=== PATIENT | female | born 1930 | race Caucasian/White ===

== ENCOUNTER 2018-04-21 07:36 | Day surgery (SDC) | payer OTHER, MEDICARE ==
[2018-04-21] MEDS ORDERED: SODIUM CHLORIDE 250 ML IV ONE ×2 (09:00→11:30)
[2018-04-21] MEDS ORDERED: DEXAMETHASONE INJECTION 20 MG, DIPHENHYDRAMINE 25 MG in SODIUM CHLORIDE 100 ML IVPB ONE (10:00)
[2018-04-21] MEDS ORDERED: FAMOTIDINE 20 MG/50 ML IVPB 20 MG/50 ML MG IVPB ONE (10:00)
[2018-04-21] MEDS ORDERED: PACLITAXEL 102 MG in SODIUM CHLORIDE 250 ML IVPB ONE (10:30)
[2018-04-21 10:32] VITALS: TEMP 98.3
[2018-04-21 10:52] LABS: BASO % 0.9 % (0-2.0); EOS % 2.8 % (0-4.5); HEMATOCRIT 41.7 % (32.4-45.2); HEMOGLOBIN 13.5 GM/dL (10.7-15.3); LYMPH % 26.1 % (8-40); MCHC 32.4 g/dl (32.0-36.0); MEAN CELL VOLUME 92.6 fl (80-96); MEAN PLT VOLUME 8.6 fl (7.5-11.1); MONO % 10.6 % (3.8-10.2); NEUT % 59.6 % (42.8-82.8); PLATELET COUNT 190 K/MM3 (134-434); RDW 14.4 % (11.6-15.6); WHITE BLOOD COUNT 8.3 K/mm3 (4.0-10.0)
[2018-04-21 11:32] LABS: ALBUMIN 3.5 g/dl (3.4-5.0); BILIRUBIN,DIRECT 0.1 mg/dL (0.0-0.2); BILIRUBIN,TOTAL 0.5 mg/dL (0.2-1); MAGNESIUM 2.2 mg/dL (1.8-2.4); TOT PROT 6.7 g/dl (6.4-8.2)
[2018-04-21 11:37] LABS: ALBUMIN 3.5 g/dl (3.4-5.0); ALK PHOS 85 U/L (45-117); ANION GAP 8 MMOL/L (8-16); BILIRUBIN,TOTAL 0.5 mg/dL (0.2-1); BLOOD UREA NITROGEN 17 mg/dL (7-18); CHLORIDE 108 mmol/L (98-107); CO2 24 mmol/L (21-32); CREATININE 0.9 mg/dL (0.55-1.3); GLUCOSE,RANDOM 136 mg/dL (74-106); POTASSIUM 3.9 mmol/L (3.5-5.1); SGOT/AST 21 U/L (15-37); SGPT/ALT 20 U/L (13-61); SODIUM 141 mmol/L (136-145); TOT PROT 6.8 g/dl (6.4-8.2)
[2018-04-21] MEDS ORDERED: ONDANSETRON 4 MG/2 ML VIAL IVPB ONE (12:19)
[2018-04-21 18:40] VITALS: BP 147/72; PULSE 81
== END 2018-04-21 17:30 | disposition home or self-care (01) ==
LOC: JONCCHEMO 07:36 → J7W 12:25 → JONCCHEMO 17:30
PROVIDERS: ATTEND Internal Medicine Hematology & Oncology
DX: Z51.11 Encounter for antineoplastic chemotherapy (principal); C50.919 Malignant neoplasm of unspecified site of unspecified female breast
CPT/HCPCS: 36415; 80053; 80076; 83735; 85025; 96361; 96367; 96375; 96413; J1100

== ENCOUNTER 2018-04-28 07:29 | Day surgery (SDC) | payer OTHER, MEDICARE ==
[2018-04-28] MEDS ORDERED: SODIUM CHLORIDE 250 ML IV ONE ×2 (09:00→11:30)
[2018-04-28 09:52] LABS: BASO % 0.7 % (0-2.0); EOS % 3.8 % (0-4.5); HEMATOCRIT 39.8 % (32.4-45.2); LYMPH % 21.9 % (8-40); MCHC 32.6 g/dl (32.0-36.0); MEAN CELL VOLUME 92.3 fl (80-96); MEAN PLT VOLUME 9.5 fl (7.5-11.1); MONO % 8.4 % (3.8-10.2); NEUT % 65.2 % (42.8-82.8); PLATELET COUNT 209 K/MM3 (134-434); RBC 4.31 M/mm3 (3.60-5.2); RDW 14.3 % (11.6-15.6); WHITE BLOOD COUNT 6.2 K/mm3 (4.0-10.0)
[2018-04-28] MEDS ORDERED: DEXAMETHASONE INJECTION 20 MG, DIPHENHYDRAMINE 25 MG, RANITIDINE INJECTION 50 MG in SOD... IVPB ONE (10:00)
[2018-04-28] MEDS ORDERED: ONDANSETRON 4 MG/2 ML VIAL IVPB ONE (10:22)
[2018-04-28] MEDS ORDERED: PACLITAXEL 102 MG in SODIUM CHLORIDE 250 ML IVPB ONE (10:30)
[2018-04-28 10:32] LABS: ALBUMIN 3.3 g/dl (3.4-5.0); ALK PHOS 76 U/L (45-117); ANION GAP 8 MMOL/L (8-16); BILIRUBIN,TOTAL 0.8 mg/dL (0.2-1); BLOOD UREA NITROGEN 16 mg/dL (7-18); CALCIUM 9.1 mg/dL (8.5-10.1); CHLORIDE 106 mmol/L (98-107); CO2 25 mmol/L (21-32); CREATININE 0.8 mg/dL (0.55-1.3); GLUCOSE,RANDOM 128 mg/dL (74-106); POTASSIUM 4.3 mmol/L (3.5-5.1); SGOT/AST 21 U/L (15-37); SGPT/ALT 25 U/L (13-61); SODIUM 140 mmol/L (136-145); TOT PROT 6.3 g/dl (6.4-8.2)
[2018-04-28 10:36] LABS: ALBUMIN 3.3 g/dl (3.4-5.0); BILIRUBIN,DIRECT 0.2 mg/dL (0.0-0.2); BILIRUBIN,TOTAL 0.6 mg/dL (0.2-1); MAGNESIUM 2.1 mg/dL (1.8-2.4); TOT PROT 6.4 g/dl (6.4-8.2)
[2018-04-28 11:17] VITALS: TEMP 98.2
[2018-04-28 13:43] VITALS: BP 133/59; PULSE 73
== END 2018-04-28 13:44 | disposition home or self-care (01) ==
LOC: JONCCHEMO 07:29 → J7W 10:34 → JONCCHEMO 13:44
PROVIDERS: ATTEND Internal Medicine Hematology & Oncology
DX: Z51.11 Encounter for antineoplastic chemotherapy (principal); C50.919 Malignant neoplasm of unspecified site of unspecified female breast
CPT/HCPCS: 36415; 80053; 80076; 83735; 85025; 96361; 96367; 96375; 96413; J1100

== ENCOUNTER 2018-05-05 07:46 | Day surgery (SDC) | payer OTHER, MEDICARE ==
[2018-05-05] MEDS ORDERED: SODIUM CHLORIDE 250 ML IV ONE ×2 (09:00→11:30)
[2018-05-05] MEDS ORDERED: DEXAMETHASONE IVPB ONE (10:00)
[2018-05-05] MEDS ORDERED: RANITIDINE IVPB ONE (10:00)
[2018-05-05] MEDS ORDERED: DIPHENHYDRAMINE IVPB ONE (10:00)
[2018-05-05] MEDS ORDERED: [UNRECOGNIZED DRUG - OTHER] IVPB ONE (10:00)
[2018-05-05 10:28] LABS: BASO % 1.5 % (0-2.0); EOS % 2.4 % (0-4.5); HEMATOCRIT 37.1 % (32.4-45.2); HEMOGLOBIN 12.5 GM/dL (10.7-15.3); LYMPH % 33.1 % (8-40); MCH 30.8 pg (25.7-33.7); MCHC 33.7 g/dl (32.0-36.0); MEAN CELL VOLUME 91.3 fl (80-96); MEAN PLT VOLUME 8.8 fl (7.5-11.1); PLATELET COUNT 197 K/MM3 (134-434); RBC 4.07 M/mm3 (3.60-5.2); RDW 14.5 % (11.6-15.6); WHITE BLOOD COUNT 4.1 K/mm3 (4.0-10.0)
[2018-05-05] MEDS ORDERED: PACLITAXEL 102 MG in SODIUM CHLORIDE 250 ML IVPB ONE (10:30)
[2018-05-05] MEDS ORDERED: DEXAMETHASONE SOD PHOSPHATE 4 MG/1 ML VIAL IVPB ONE (10:52)
[2018-05-05] MEDS ORDERED: ONDANSETRON 4 MG/2 ML VIAL IVPB ONE (10:53)
[2018-05-05 11:18] LABS: ALBUMIN 3.3 g/dl (3.4-5.0); ALK PHOS 72 U/L (45-117); ANION GAP 11 MMOL/L (8-16); BILIRUBIN,TOTAL 0.4 mg/dL (0.2-1); BLOOD UREA NITROGEN 17 mg/dL (7-18); CHLORIDE 105 mmol/L (98-107); CO2 23 mmol/L (21-32); CREATININE 0.9 mg/dL (0.55-1.3); GLUCOSE,RANDOM 127 mg/dL (74-106); POTASSIUM 3.5 mmol/L (3.5-5.1); SGOT/AST 19 U/L (15-37); SGPT/ALT 28 U/L (13-61); SODIUM 139 mmol/L (136-145); TOT PROT 6.2 g/dl (6.4-8.2)
[2018-05-05 11:19] LABS: ALBUMIN 3.3 g/dl (3.4-5.0); BILIRUBIN,DIRECT 0.1 mg/dL (0.0-0.2); BILIRUBIN,TOTAL 0.4 mg/dL (0.2-1); MAGNESIUM 1.8 mg/dL (1.8-2.4); TOT PROT 6.1 g/dl (6.4-8.2)
[2018-05-05] MEDS ORDERED: DEXAMETHASONE SOD PHOSPHATE 10 MG/1 ML VIAL ONE (11:22)
[2018-05-05 13:58] VITALS: TEMP 98
[2018-05-05 15:02] VITALS: BP 125/65; PULSE 78
== END 2018-05-05 15:03 | disposition home or self-care (01) ==
LOC: JONCCHEMO 07:46 → J7W 11:06 → JONCCHEMO 15:03
PROVIDERS: ATTEND Internal Medicine Hematology & Oncology
DX: Z51.11 Encounter for antineoplastic chemotherapy (principal); C50.919 Malignant neoplasm of unspecified site of unspecified female breast
CPT/HCPCS: 36415; 80053; 80076; 83735; 85025; 96361; 96367; 96413; J1100

== ENCOUNTER → 2018-05-17 | Day surgery (SDC) | payer OTHER, MEDICARE ==
[2018-05-14 13:57] VITALS: BMI 28.3
[2018-05-17 09:51] LABS: EOS % 2.4 % (0-4.5); HEMATOCRIT 37.6 % (32.4-45.2); LYMPH % 18.8 % (8-40); MCH 31.2 pg (25.7-33.7); MCHC 34.4 g/dl (32.0-36.0); MEAN CELL VOLUME 90.7 fl (80-96); MEAN PLT VOLUME 9.1 fl (7.5-11.1); MONO % 16.3 % (3.8-10.2); NEUT % 61.5 % (42.8-82.8); PLATELET COUNT 212 K/MM3 (134-434); RBC 4.15 M/mm3 (3.60-5.2); RDW 14.6 % (11.6-15.6); WHITE BLOOD COUNT 7.8 K/mm3 (4.0-10.0)
[2018-05-17 10:18] LABS: INR 1.21 (0.83-1.09); PROTHROMBIN TIME (PATIENT) 14.3 SEC (9.7-13.0)
== END | disposition home or self-care (01) ==
LOC: JRADIR 09:17
PROVIDERS: ATTEND Internal Medicine Hematology & Oncology
PROC: 3E033GC Introduction of Other Therapeutic Substance into Peripheral Vein, Percutaneous Approach (ICD-10-PCS; principal; 2018-05-17)
DX: Z53.8 Procedure and treatment not carried out for other reasons (principal)
CPT/HCPCS: 36415; 85025; 85610

== ENCOUNTER 2018-05-19 07:14 | Day surgery (SDC) | payer OTHER, MEDICARE ==
[2018-05-19] MEDS ORDERED: SODIUM CHLORIDE 250 ML IV ONE ×2 (08:00→10:00)
[2018-05-19] MEDS ORDERED: DEXAMETHASONE INJECTION 10 MG, DIPHENHYDRAMINE 25 MG, RANITIDINE INJECTION 50 MG in SOD... IVPB ONE (08:30)
[2018-05-19] MEDS ORDERED: PACLITAXEL 102 MG in SODIUM CHLORIDE 250 ML IVPB ONE (09:00)
[2018-05-19 09:46] LABS: BASO % 1.1 % (0-2.0); EOS % 3.9 % (0-4.5); HEMATOCRIT 38.3 % (32.4-45.2); HEMOGLOBIN 12.5 GM/dL (10.7-15.3); LYMPH % 17.7 % (8-40); MCH 29.3 pg (25.7-33.7); MCHC 32.5 g/dl (32.0-36.0); MEAN CELL VOLUME 90.2 fl (80-96); MEAN PLT VOLUME 8.7 fl (7.5-11.1); MONO % 15.5 % (3.8-10.2); NEUT % 61.8 % (42.8-82.8); PLATELET COUNT 231 K/MM3 (134-434); RBC 4.25 M/mm3 (3.60-5.2); RDW 14.8 % (11.6-15.6); WHITE BLOOD COUNT 7.4 K/mm3 (4.0-10.0)
[2018-05-19] MEDS ORDERED: ONDANSETRON 4 MG/2 ML VIAL IVPB ONE (10:32)
[2018-05-19 10:48] LABS: ALBUMIN 3.2 g/dl (3.4-5.0); ALK PHOS 70 U/L (45-117); ANION GAP 13 MMOL/L (8-16); BILIRUBIN,DIRECT 0.2 mg/dL (0.0-0.2); BILIRUBIN,TOTAL 0.5 mg/dL (0.2-1); BLOOD UREA NITROGEN 12 mg/dL (7-18); CALCIUM 8.4 mg/dL (8.5-10.1); CHLORIDE 103 mmol/L (98-107); CO2 22 mmol/L (21-32); GLUCOSE,RANDOM 139 mg/dL (74-106); MAGNESIUM 1.8 mg/dL (1.8-2.4); POTASSIUM 4.2 mmol/L (3.5-5.1); SGOT/AST 20 U/L (15-37); SGPT/ALT 22 U/L (13-61); SODIUM 138 mmol/L (136-145); TOT PROT 6.3 g/dl (6.4-8.2)
[2018-05-19] MEDS ORDERED: DEXAMETHASONE INJECTION 10 MG in SODIUM CHLORIDE 100 ML IVPUSH ONE (11:15)
[2018-05-19 15:38] VITALS: BP 142/61; PULSE 77
[2018-05-19 15:41] VITALS: TEMP 98.5
== END 2018-05-19 14:40 | disposition home or self-care (01) ==
LOC: JONCCHEMO 07:14 → J7W 10:44 → JONCCHEMO 14:40
PROVIDERS: ATTEND Internal Medicine Hematology & Oncology
DX: Z51.11 Encounter for antineoplastic chemotherapy (principal); C50.919 Malignant neoplasm of unspecified site of unspecified female breast
CPT/HCPCS: 36415; 80053; 80076; 83735; 85025; 96361; 96367; 96375; 96413; J1100

== ENCOUNTER 2018-05-26 07:10 | Day surgery (SDC) | payer OTHER, MEDICARE ==
[2018-05-26] MEDS ORDERED: SODIUM CHLORIDE 250 ML IV ONE ×2 (08:00→10:00)
[2018-05-26] MEDS ORDERED: [UNRECOGNIZED DRUG - OTHER] IVPB ONE (08:30)
[2018-05-26] MEDS ORDERED: DEXAMETHASONE IVPB ONE (08:30)
[2018-05-26] MEDS ORDERED: RANITIDINE IVPB ONE (08:30)
[2018-05-26] MEDS ORDERED: DIPHENHYDRAMINE IVPB ONE (08:30)
[2018-05-26] MEDS ORDERED: PACLITAXEL 102 MG in SODIUM CHLORIDE 250 ML IVPB ONE (09:00)
[2018-05-26 09:49] LABS: BASO % 1.9 % (0-2.0); EOS % 8.5 % (0-4.5); HEMATOCRIT 38.2 % (32.4-45.2); HEMOGLOBIN 12.6 GM/dL (10.7-15.3); LYMPH % 22.1 % (8-40); MCH 29.6 pg (25.7-33.7); MCHC 33.1 g/dl (32.0-36.0); MEAN CELL VOLUME 89.5 fl (80-96); MEAN PLT VOLUME 8.4 fl (7.5-11.1); NEUT % 59.5 % (42.8-82.8); PLATELET COUNT 273 K/MM3 (134-434); RBC 4.27 M/mm3 (3.60-5.2); RDW 14.6 % (11.6-15.6); WHITE BLOOD COUNT 7.4 K/mm3 (4.0-10.0)
[2018-05-26 10:13] LABS: ALBUMIN 3.4 g/dl (3.4-5.0); ALK PHOS 79 U/L (45-117); ANION GAP 14 MMOL/L (8-16); BILIRUBIN,TOTAL 0.4 mg/dL (0.2-1); BLOOD UREA NITROGEN 18 mg/dL (7-18); CALCIUM 8.6 mg/dL (8.5-10.1); CHLORIDE 105 mmol/L (98-107); CO2 20 mmol/L (21-32); CREATININE 0.9 mg/dL (0.55-1.3); GLUCOSE,RANDOM 159 mg/dL (74-106); POTASSIUM 3.6 mmol/L (3.5-5.1); SGOT/AST 16 U/L (15-37); SGPT/ALT 24 U/L (13-61); SODIUM 139 mmol/L (136-145); TOT PROT 6.6 g/dl (6.4-8.2)
[2018-05-26] MEDS ORDERED: DEXAMETHASONE SOD PHOSPHATE 10 MG/1 ML VIAL IVPB ONE (11:30)
[2018-05-26] MEDS ORDERED: ONDANSETRON 4 MG/2 ML VIAL IVPB ONE (11:30)
[2018-05-26 16:28] VITALS: BP 110/71; PULSE 85; TEMP 98.5
== END 2018-05-26 16:10 | disposition home or self-care (01) ==
LOC: JONCCHEMO 07:10 → J7W 11:09 → JONCCHEMO 16:10
PROVIDERS: ATTEND Internal Medicine Hematology & Oncology
DX: Z51.11 Encounter for antineoplastic chemotherapy (principal); C50.919 Malignant neoplasm of unspecified site of unspecified female breast
CPT/HCPCS: 36415; 71046-TC-FY; 80053; 85025; 96361; 96367; 96375; 96413; J1100

== ENCOUNTER 2018-06-09 07:41 | Day surgery (SDC) | payer OTHER, MEDICARE ==
[2018-06-09] MEDS ORDERED: SODIUM CHLORIDE 250 ML IV ONE ×2 (09:00→11:30)
[2018-06-09 09:46] LABS: BASO % 1.2 % (0-2.0); EOS % 0.6 % (0-4.5); HEMATOCRIT 38.8 % (32.4-45.2); HEMOGLOBIN 13.4 GM/dL (10.7-15.3); LYMPH % 29.5 % (8-40); MCH 30.8 pg (25.7-33.7); MCHC 34.6 g/dl (32.0-36.0); MEAN CELL VOLUME 88.9 fl (80-96); MEAN PLT VOLUME 8.5 fl (7.5-11.1); MONO % 11.1 % (3.8-10.2); NEUT % 57.6 % (42.8-82.8); PLATELET COUNT 227 K/MM3 (134-434); RBC 4.36 M/mm3 (3.60-5.2); RDW 15.6 % (11.6-15.6); WHITE BLOOD COUNT 8.5 K/mm3 (4.0-10.0)
[2018-06-09] MEDS ORDERED: RANITIDINE IVPB ONE (10:00)
[2018-06-09] MEDS ORDERED: [UNRECOGNIZED DRUG - OTHER] IVPB ONE (10:00)
[2018-06-09] MEDS ORDERED: DIPHENHYDRAMINE IVPB ONE (10:00)
[2018-06-09] MEDS ORDERED: DEXAMETHASONE IVPB ONE (10:00)
[2018-06-09] MEDS ORDERED: PACLITAXEL 102 MG in SODIUM CHLORIDE 250 ML IVPB ONE (10:30)
[2018-06-09 10:32] LABS: ALBUMIN 3.4 g/dl (3.4-5.0); ALK PHOS 94 U/L (45-117); ANION GAP 11 MMOL/L (8-16); BILIRUBIN,DIRECT 0.1 mg/dL (0.0-0.2); BILIRUBIN,TOTAL 0.5 mg/dL (0.2-1); BLOOD UREA NITROGEN 13 mg/dL (7-18); CALCIUM 8.7 mg/dL (8.5-10.1); CHLORIDE 107 mmol/L (98-107); CO2 23 mmol/L (21-32); CREATININE 0.9 mg/dL (0.55-1.3); GLUCOSE,RANDOM 136 mg/dL (74-106); SGOT/AST 15 U/L (15-37); SGPT/ALT 18 U/L (13-61); SODIUM 141 mmol/L (136-145); TOT PROT 6.6 g/dl (6.4-8.2)
[2018-06-09] MEDS ORDERED: DEXAMETHASONE SOD PHOSPHATE 4 MG/1 ML VIAL IVPB ONE (10:33)
[2018-06-09 11:40] VITALS: TEMP 97.5
[2018-06-09] MEDS ORDERED: DEXAMETHASONE SOD PHOSPHATE 10 MG/1 ML VIAL ONE (11:58)
[2018-06-09 16:22] VITALS: BP 131/69; PULSE 85
== END 2018-06-09 15:00 | disposition home or self-care (01) ==
LOC: JONCCHEMO 07:41 → J7W 10:46 → JONCCHEMO 15:00
PROVIDERS: ATTEND Internal Medicine Hematology & Oncology
DX: Z51.11 Encounter for antineoplastic chemotherapy (principal); C50.919 Malignant neoplasm of unspecified site of unspecified female breast
CPT/HCPCS: 36415; 80053; 80076; 83735; 85025; 96361; 96367; 96375; 96413; J1100

== ENCOUNTER 2018-06-16 07:37 | Day surgery (SDC) | payer OTHER, MEDICARE ==
[2018-06-16] MEDS ORDERED: SODIUM CHLORIDE 250 ML IV ONE ×2 (09:00→11:30)
[2018-06-16 09:43] LABS: BASO % 0.8 % (0-2.0); EOS % 1.9 % (0-4.5); HEMATOCRIT 37.1 % (32.4-45.2); HEMOGLOBIN 11.9 GM/dL (10.7-15.3); LYMPH % 23.4 % (8-40); MCH 28.7 pg (25.7-33.7); MEAN CELL VOLUME 89.8 fl (80-96); MEAN PLT VOLUME 8.8 fl (7.5-11.1); MONO % 8.9 % (3.8-10.2); PLATELET COUNT 222 K/MM3 (134-434); RBC 4.13 M/mm3 (3.60-5.2); RDW 15.4 % (11.6-15.6); WHITE BLOOD COUNT 8.8 K/mm3 (4.0-10.0)
[2018-06-16] MEDS ORDERED: DIPHENHYDRAMINE IVPB ONE (10:00)
[2018-06-16] MEDS ORDERED: [UNRECOGNIZED DRUG - OTHER] IVPB ONE (10:00)
[2018-06-16] MEDS ORDERED: DEXAMETHASONE SODIUM PHOSPHATE IVPB ONE (10:00)
[2018-06-16 10:20] LABS: ALBUMIN 3.4 g/dl (3.4-5.0); ALK PHOS 81 U/L (45-117); ANION GAP 11 MMOL/L (8-16); BILIRUBIN,DIRECT 0.1 mg/dL (0.0-0.2); BILIRUBIN,TOTAL 0.4 mg/dL (0.2-1); BLOOD UREA NITROGEN 18 mg/dL (7-18); CALCIUM 8.6 mg/dL (8.5-10.1); CHLORIDE 106 mmol/L (98-107); CO2 23 mmol/L (21-32); CREATININE 0.9 mg/dL (0.55-1.3); GLUCOSE,RANDOM 122 mg/dL (74-106); MAGNESIUM 1.9 mg/dL (1.8-2.4); POTASSIUM 4.1 mmol/L (3.5-5.1); SGOT/AST 17 U/L (15-37); SGPT/ALT 17 U/L (13-61); SODIUM 139 mmol/L (136-145); TOT PROT 6.3 g/dl (6.4-8.2)
[2018-06-16] MEDS ORDERED: PACLITAXEL 102 MG in SODIUM CHLORIDE 250 ML IVPB ONE (10:30)
[2018-06-16 17:08] VITALS: TEMP 76
[2018-06-16 17:09] VITALS: BP 124/59; PULSE 80
== END 2018-06-16 15:15 | disposition home or self-care (01) ==
LOC: JONCCHEMO 07:37 → J7W 10:45 → JONCCHEMO 15:15
PROVIDERS: ATTEND Internal Medicine Hematology & Oncology
DX: Z51.11 Encounter for antineoplastic chemotherapy (principal); C50.919 Malignant neoplasm of unspecified site of unspecified female breast
CPT/HCPCS: 36415; 80053; 80076; 83735; 85025; 96361; 96367; 96375; 96413

== ENCOUNTER 2018-06-23 06:52 | Day surgery (SDC) | payer OTHER, MEDICARE ==
[2018-06-23] MEDS ORDERED: SODIUM CHLORIDE 250 ML IV ONE ×2 (09:00→11:30)
[2018-06-23 09:44] LABS: BASO % 0.9 % (0-2.0); HEMATOCRIT 35.2 % (32.4-45.2); HEMOGLOBIN 12.3 GM/dL (10.7-15.3); LYMPH % 32.7 % (8-40); MCH 31.1 pg (25.7-33.7); MCHC 34.9 g/dl (32.0-36.0); MEAN PLT VOLUME 9.1 fl (7.5-11.1); MONO % 8.7 % (3.8-10.2); NEUT % 55.7 % (42.8-82.8); PLATELET COUNT 207 K/MM3 (134-434); RBC 3.95 M/mm3 (3.60-5.2); RDW 16.2 % (11.6-15.6); WHITE BLOOD COUNT 5.5 K/mm3 (4.0-10.0)
[2018-06-23] MEDS ORDERED: DIPHENHYDRAMINE IVPB ONE (10:00)
[2018-06-23] MEDS ORDERED: DEXAMETHASONE SODIUM PHOSPHATE IVPB ONE (10:00)
[2018-06-23] MEDS ORDERED: [UNRECOGNIZED DRUG - OTHER] IVPB ONE (10:00)
[2018-06-23 10:28] LABS: ALBUMIN 3.4 g/dl (3.4-5.0); ALK PHOS 81 U/L (45-117); ANION GAP 13 MMOL/L (8-16); BILIRUBIN,DIRECT 0.1 mg/dL (0.0-0.2); BILIRUBIN,TOTAL 0.5 mg/dL (0.2-1); BLOOD UREA NITROGEN 17 mg/dL (7-18); CALCIUM 8.7 mg/dL (8.5-10.1); CHLORIDE 106 mmol/L (98-107); CO2 20 mmol/L (21-32); GLUCOSE,RANDOM 132 mg/dL (74-106); POTASSIUM 4.1 mmol/L (3.5-5.1); SGOT/AST 16 U/L (15-37); SGPT/ALT 19 U/L (13-61); SODIUM 139 mmol/L (136-145); TOT PROT 6.3 g/dl (6.4-8.2)
[2018-06-23] MEDS ORDERED: PACLITAXEL 102 MG in SODIUM CHLORIDE 250 ML IVPB ONE (10:30)
[2018-06-23 15:14] VITALS: BP 104/61; PULSE 84; TEMP 97.8
== END 2018-06-23 14:45 | disposition home or self-care (01) ==
LOC: JONCCHEMO 06:52 → J7W 10:41 → JONCCHEMO 14:45
PROVIDERS: ATTEND Internal Medicine Hematology & Oncology
DX: Z51.11 Encounter for antineoplastic chemotherapy (principal); C50.911 Malignant neoplasm of unspecified site of right female breast
CPT/HCPCS: 36415; 80053; 80076; 83735; 85025; 96361; 96367; 96375; 96413

== ENCOUNTER 2018-07-14 07:43 | Day surgery (SDC) | payer OTHER, MEDICARE ==
[2018-07-14] MEDS ORDERED: SODIUM CHLORIDE 250 ML IV ONE ×2 (08:00→10:00)
[2018-07-14] MEDS ORDERED: DIPHENHYDRAMINE IVPB ONE (08:30)
[2018-07-14] MEDS ORDERED: [UNRECOGNIZED DRUG - OTHER] IVPB ONE (08:30)
[2018-07-14] MEDS ORDERED: DEXAMETHASONE SODIUM PHOSPHATE IVPB ONE (08:30)
[2018-07-14] MEDS ORDERED: PACLITAXEL 102 MG in SODIUM CHLORIDE 250 ML IVPB ONE (09:00)
[2018-07-14 10:11] LABS: BASO % 0.6 % (0-2.0); EOS % 0.5 % (0-4.5); HEMATOCRIT 36.6 % (32.4-45.2); HEMOGLOBIN 11.8 GM/dL (10.7-15.3); LYMPH % 11.1 % (8-40); MCH 28.3 pg (25.7-33.7); MCHC 32.3 g/dl (32.0-36.0); MEAN CELL VOLUME 87.6 fl (80-96); MONO % 7.3 % (3.8-10.2); NEUT % 80.5 % (42.8-82.8); PLATELET COUNT 343 K/MM3 (134-434); RBC 4.18 M/mm3 (3.60-5.2); RDW 16.2 % (11.6-15.6); WHITE BLOOD COUNT 12.8 K/mm3 (4.0-10.0)
[2018-07-14 10:41] LABS: ALBUMIN 3.1 g/dl (3.4-5.0); ALK PHOS 86 U/L (45-117); ANION GAP 11 MMOL/L (8-16); BILIRUBIN,DIRECT 0.2 mg/dL (0.0-0.2); BILIRUBIN,TOTAL 0.5 mg/dL (0.2-1); BLOOD UREA NITROGEN 13 mg/dL (7-18); CALCIUM 8.7 mg/dL (8.5-10.1); CHLORIDE 108 mmol/L (98-107); CO2 23 mmol/L (21-32); CREATININE 0.8 mg/dL (0.55-1.3); GLUCOSE,RANDOM 146 mg/dL (74-106); MAGNESIUM 1.9 mg/dL (1.8-2.4); POTASSIUM 3.7 mmol/L (3.5-5.1); SGOT/AST 15 U/L (15-37); SGPT/ALT 16 U/L (13-61); SODIUM 141 mmol/L (136-145); TOT PROT 6.4 g/dl (6.4-8.2)
[2018-07-14 17:09] VITALS: TEMP 98.3
[2018-07-14 17:17] VITALS: BP 116/72; PULSE 92
== END 2018-07-14 15:00 | disposition home or self-care (01) ==
LOC: JONCCHEMO 07:43 → J7W 10:26 → JONCCHEMO 15:00
PROVIDERS: ATTEND Internal Medicine Hematology & Oncology
PROC: 3E04305 Introduction of Other Antineoplastic into Central Vein, Percutaneous Approach (ICD-10-PCS; principal; 2018-07-14)
PROC: 3E043GC Introduction of Other Therapeutic Substance into Central Vein, Percutaneous Approach (ICD-10-PCS; 2018-07-14)
PROC: 3E0437Z Introduction of Electrolytic and Water Balance Substance into Central Vein, Percutaneous Approach (ICD-10-PCS; 2018-07-14)
DX: Z51.11 Encounter for antineoplastic chemotherapy (principal); C50.911 Malignant neoplasm of unspecified site of right female breast; I10 Essential (primary) hypertension; E78.00 Pure hypercholesterolemia, unspecified; E03.9 Hypothyroidism, unspecified; Z95.0 Presence of cardiac pacemaker; K21.9 Gastro-esophageal reflux disease without esophagitis
CPT/HCPCS: 36415; 80053; 80076; 83735; 85025; 96361; 96375; 96413

== ENCOUNTER 2018-07-21 05:41 | Day surgery (SDC) | payer OTHER, MEDICARE ==
[2018-07-21] MEDS ORDERED: SODIUM CHLORIDE 250 ML IV ONE ×2 (08:00→10:00)
[2018-07-21] MEDS ORDERED: DIPHENHYDRAMINE IVPB ONE (08:30)
[2018-07-21] MEDS ORDERED: [UNRECOGNIZED DRUG - OTHER] IVPB ONE (08:30)
[2018-07-21] MEDS ORDERED: DEXAMETHASONE SODIUM PHOSPHATE IVPB ONE (08:30)
[2018-07-21] MEDS ORDERED: PACLITAXEL 102 MG in SODIUM CHLORIDE 250 ML IVPB ONE (09:00)
[2018-07-21 10:00] LABS: BASO % 0.5 % (0-2.0); EOS % 1.6 % (0-4.5); HEMATOCRIT 34.3 % (32.4-45.2); HEMOGLOBIN 11.7 GM/dL (10.7-15.3); LYMPH % 26.7 % (8-40); MCH 29.6 pg (25.7-33.7); MEAN PLT VOLUME 8.7 fl (7.5-11.1); MONO % 11.3 % (3.8-10.2); NEUT % 59.9 % (42.8-82.8); PLATELET COUNT 323 K/MM3 (134-434); RBC 3.94 M/mm3 (3.60-5.2); RDW 16.5 % (11.6-15.6); WHITE BLOOD COUNT 9.8 K/mm3 (4.0-10.0)
[2018-07-21 10:22] LABS: ANION GAP 14 MMOL/L (8-16); BLOOD UREA NITROGEN 16 mg/dL (7-18); CALCIUM 8.6 mg/dL (8.5-10.1); CHLORIDE 105 mmol/L (98-107); CO2 21 mmol/L (21-32); CREATININE 0.9 mg/dL (0.55-1.3); GLUCOSE,RANDOM 141 mg/dL (74-106); MAGNESIUM 1.9 mg/dL (1.8-2.4); SODIUM 139 mmol/L (136-145)
[2018-07-21 11:08] LABS: BILIRUBIN,DIRECT 0.2 mg/dL (0.0-0.2); BILIRUBIN,TOTAL 0.5 mg/dL (0.2-1); TOT PROT 6.2 g/dl (6.4-8.2)
[2018-07-21 13:22] VITALS: BP 146/73; PULSE 94; TEMP 97.7
== END 2018-07-21 14:45 | disposition home or self-care (01) ==
LOC: JONCCHEMO 05:41 → J7W 10:23 → JONCCHEMO 14:45
PROVIDERS: ATTEND Internal Medicine Hematology & Oncology
DX: Z51.11 Encounter for antineoplastic chemotherapy (principal); C34.11 Malignant neoplasm of upper lobe, right bronchus or lung
CPT/HCPCS: 36415; 80048; 80076; 83735; 85025; 96361; 96367; 96375; 96413

== ENCOUNTER 2018-09-01 06:44 | Day surgery (SDC) | payer OTHER, MEDICARE ==
[2018-09-01] MEDS ORDERED: DEXAMETHASONE SODIUM PHOSPHATE 8 MG, ONDANSETRON INJECTION 8 MG in SODIUM CHLORIDE 100 ML IVPB ONE (08:00)
[2018-09-01] MEDS ORDERED: SODIUM CHLORIDE IV ONE (08:30)
[2018-09-01] MEDS ORDERED: GEMCITABINE HCL IV ONE (08:30)
[2018-09-01 10:07] LABS: BASO % 0.5 % (0-2.0); HEMATOCRIT 36.6 % (32.4-45.2); HEMOGLOBIN 12.1 GM/dL (10.7-15.3); MCH 27.8 pg (25.7-33.7); MEAN CELL VOLUME 84.3 fl (80-96); MEAN PLT VOLUME 8.2 fl (7.5-11.1); MONO % 8.1 % (3.8-10.2); NEUT % 77.4 % (42.8-82.8); PLATELET COUNT 311 K/MM3 (134-434); RBC 4.35 M/mm3 (3.60-5.2); RDW 16.8 % (11.6-15.6); WHITE BLOOD COUNT 12.1 K/mm3 (4.0-10.0)
[2018-09-01 10:39] LABS: ALBUMIN 2.9 g/dl (3.4-5.0); BILIRUBIN,DIRECT 0.2 mg/dL (0.0-0.2); BILIRUBIN,TOTAL 0.5 mg/dL (0.2-1); MAGNESIUM 1.9 mg/dL (1.8-2.4); TOT PROT 6.4 g/dl (6.4-8.2)
[2018-09-01 10:43] LABS: ALBUMIN 2.9 g/dl (3.4-5.0); ALK PHOS 78 U/L (45-117); ANION GAP 12 MMOL/L (8-16); BILIRUBIN,TOTAL 0.5 mg/dL (0.2-1); BLOOD UREA NITROGEN 12 mg/dL (7-18); CALCIUM 8.3 mg/dL (8.5-10.1); CHLORIDE 103 mmol/L (98-107); CO2 23 mmol/L (21-32); CREATININE 0.9 mg/dL (0.55-1.3); GLUCOSE,RANDOM 148 mg/dL (74-106); SGOT/AST 13 U/L (15-37); SGPT/ALT 13 U/L (13-61); SODIUM 138 mmol/L (136-145); TOT PROT 6.2 g/dl (6.4-8.2)
[2018-09-01 17:00] VITALS: TEMP 97.8
[2018-09-01 17:01] VITALS: BP 113/56; PULSE 79
== END 2018-09-01 13:00 | disposition home or self-care (01) ==
LOC: JONCCHEMO 06:44 → J7W 11:36 → JONCCHEMO 13:00
PROVIDERS: ATTEND Internal Medicine Hematology & Oncology
DX: Z51.11 Encounter for antineoplastic chemotherapy (principal); C34.11 Malignant neoplasm of upper lobe, right bronchus or lung
CPT/HCPCS: 36415; 80053; 80076; 83735; 84439; 84443; 85025; 96367; 96375; 96413; J2405

== ENCOUNTER 2018-09-03 07:18 | Day surgery (SDC) | payer OTHER, MEDICARE ==
[2018-09-03] MEDS ORDERED: TBO-FILGRASTIM 300 MCG/0.5 ML DISP.SYRINGE SQ ONE (09:45)
[2018-09-03 13:22] VITALS: BP 139/65; PULSE 94; TEMP 98.5
== END 2018-09-03 10:11 | disposition home or self-care (01) ==
LOC: JONCCHEMO 07:18 → J7W 09:27 → JONCCHEMO 10:11
PROVIDERS: ATTEND Internal Medicine Hematology & Oncology
PROC: 3E013GC Introduction of Other Therapeutic Substance into Subcutaneous Tissue, Percutaneous Approach (ICD-10-PCS; principal; 2018-09-03)
DX: C34.11 Malignant neoplasm of upper lobe, right bronchus or lung (principal); Z76.89 Persons encountering health services in other specified circumstances
CPT/HCPCS: 96372; J1447

== ENCOUNTER 2018-09-08 07:05 | Day surgery (SDC) | payer OTHER, MEDICARE ==
[2018-09-08] MEDS ORDERED: DEXAMETHASONE SODIUM PHOSPHATE 8 MG, ONDANSETRON INJECTION 8 MG in SODIUM CHLORIDE 100 ML IVPB ONE (08:00)
[2018-09-08] MEDS ORDERED: SODIUM CHLORIDE IV ONE (08:30)
[2018-09-08] MEDS ORDERED: GEMCITABINE HCL IV ONE (08:30)
[2018-09-08 11:01] LABS: BASO % 0.4 % (0-2.0); EOS % 0.2 % (0-4.5); HEMATOCRIT 34.8 % (32.4-45.2); HEMOGLOBIN 11.4 GM/dL (10.7-15.3); LYMPH % 13.2 % (8-40); MCH 27.4 pg (25.7-33.7); MCHC 32.9 g/dl (32.0-36.0); MEAN CELL VOLUME 83.3 fl (80-96); MONO % 9.1 % (3.8-10.2); NEUT % 77.1 % (42.8-82.8); PLATELET COUNT 181 K/MM3 (134-434); RBC 4.17 M/mm3 (3.60-5.2); RDW 16.5 % (11.6-15.6); WHITE BLOOD COUNT 10.1 K/mm3 (4.0-10.0)
[2018-09-08 11:25] LABS: ALBUMIN 2.8 g/dl (3.4-5.0); ALK PHOS 89 U/L (45-117); ANION GAP 11 MMOL/L (8-16); BILIRUBIN,TOTAL 0.5 mg/dL (0.2-1); BLOOD UREA NITROGEN 15 mg/dL (7-18); CALCIUM 8.7 mg/dL (8.5-10.1); CHLORIDE 102 mmol/L (98-107); CO2 24 mmol/L (21-32); GLUCOSE,RANDOM 133 mg/dL (74-106); POTASSIUM 4.7 mmol/L (3.5-5.1); SGOT/AST 22 U/L (15-37); SGPT/ALT 31 U/L (13-61); SODIUM 136 mmol/L (136-145); TOT PROT 6.2 g/dl (6.4-8.2)
[2018-09-08 11:27] LABS: ALBUMIN 2.6 g/dl (3.4-5.0); BILIRUBIN,DIRECT 0.2 mg/dL (0.0-0.2); BILIRUBIN,TOTAL 0.4 mg/dL (0.2-1); MAGNESIUM 2.1 mg/dL (1.8-2.4); TOT PROT 6.1 g/dl (6.4-8.2)
[2018-09-08] MEDS ORDERED: SODIUM CHLORIDE 1,000 ML IV SCH (11:30)
[2018-09-08] MEDS ORDERED: SODIUM CHLORIDE IV SCH (11:38)
[2018-09-08] MEDS ORDERED: traMADol HCL 50 MG TABLET PO ONE (14:09)
[2018-09-08 15:49] VITALS: TEMP 97.9
[2018-09-08 15:50] VITALS: BP 119/76; PULSE 84
== END 2018-09-08 15:51 | disposition home or self-care (01) ==
LOC: JONCCHEMO 07:05 → J7W 11:16 → JONCCHEMO 15:51
PROVIDERS: ATTEND Internal Medicine Hematology & Oncology
DX: Z51.11 Encounter for antineoplastic chemotherapy (principal); C34.11 Malignant neoplasm of upper lobe, right bronchus or lung
CPT/HCPCS: 36415; 80053; 80076; 83735; 85025; 96361; 96367; 96375; 96413; J2405; J7030

== ENCOUNTER 2018-09-10 05:46 | Day surgery (SDC) | payer OTHER, MEDICARE ==
[2018-09-10] MEDS ORDERED: TBO-FILGRASTIM 480 MCG/0.8 ML DISP.SYRIN SQ ONE (11:30)
[2018-09-10 14:38] VITALS: BP 130/90; PULSE 100; TEMP 98
== END 2018-09-10 12:20 | disposition home or self-care (01) ==
LOC: JONCCHEMO 05:46 → J7W 10:50 → JONCCHEMO 12:20
PROVIDERS: ATTEND Internal Medicine Hematology & Oncology
PROC: 3E013GC Introduction of Other Therapeutic Substance into Subcutaneous Tissue, Percutaneous Approach (ICD-10-PCS; principal; 2018-09-10)
DX: C34.11 Malignant neoplasm of upper lobe, right bronchus or lung (principal); Z76.89 Persons encountering health services in other specified circumstances
CPT/HCPCS: 96372; J1447

== ENCOUNTER 2018-09-22 06:00 | Day surgery (SDC) | payer OTHER, MEDICARE ==
[2018-09-22] MEDS ORDERED: DEXAMETHASONE SODIUM PHOSPHATE 8 MG, ONDANSETRON INJECTION 8 MG in SODIUM CHLORIDE 100 ML IVPB ONE (08:00)
[2018-09-22] MEDS ORDERED: SODIUM CHLORIDE IV ONE (08:30)
[2018-09-22] MEDS ORDERED: GEMCITABINE HCL IV ONE (08:30)
[2018-09-22 10:36] LABS: BASO % 0.6 % (0-2.0); EOS % 0.7 % (0-4.5); HEMATOCRIT 32.8 % (32.4-45.2); HEMOGLOBIN 11.1 GM/dL (10.7-15.3); LYMPH % 19.3 % (8-40); MCHC 33.7 g/dl (32.0-36.0); MEAN CELL VOLUME 83.2 fl (80-96); MONO % 19.8 % (3.8-10.2); NEUT % 59.6 % (42.8-82.8); PLATELET COUNT 720 K/MM3 (134-434); RBC 3.95 M/mm3 (3.60-5.2); RDW 18.1 % (11.6-15.6); WHITE BLOOD COUNT 9.9 K/mm3 (4.0-10.0)
[2018-09-22 11:06] LABS: ALBUMIN 2.6 g/dl (3.4-5.0); BILIRUBIN,DIRECT 0.2 mg/dL (0.0-0.2); BILIRUBIN,TOTAL 0.4 mg/dL (0.2-1); MAGNESIUM 2.2 mg/dL (1.8-2.4); TOT PROT 6.1 g/dl (6.4-8.2)
[2018-09-22 11:10] LABS: ALBUMIN 2.6 g/dl (3.4-5.0); ALK PHOS 83 U/L (45-117); ANION GAP 9 MMOL/L (8-16); BILIRUBIN,TOTAL 0.5 mg/dL (0.2-1); BLOOD UREA NITROGEN 15 mg/dL (7-18); CALCIUM 8.6 mg/dL (8.5-10.1); CHLORIDE 102 mmol/L (98-107); CO2 23 mmol/L (21-32); CREATININE 0.8 mg/dL (0.55-1.3); GLUCOSE,RANDOM 130 mg/dL (74-106); POTASSIUM 4.5 mmol/L (3.5-5.1); SGOT/AST 21 U/L (15-37); SGPT/ALT 25 U/L (13-61); SODIUM 135 mmol/L (136-145)
[2018-09-22] MEDS ORDERED: SODIUM CHLORIDE 500 ML IV SCH (11:15)
[2018-09-22 17:05] VITALS: TEMP 97.6
[2018-09-22 17:46] VITALS: BP 107/56; PULSE 90
== END 2018-09-22 18:00 | disposition home or self-care (01) ==
LOC: JONCCHEMO 06:00 → J7W 11:32 → JONCCHEMO 18:00
PROVIDERS: ATTEND Internal Medicine Hematology & Oncology
DX: Z51.11 Encounter for antineoplastic chemotherapy (principal); C34.11 Malignant neoplasm of upper lobe, right bronchus or lung
CPT/HCPCS: 36415; 80053; 80076; 83735; 85025; 96361; 96367; 96375; 96413; J2405; J7030

== ENCOUNTER 2018-09-29 07:18 | Day surgery (SDC) | payer OTHER, MEDICARE ==
[2018-09-29] MEDS ORDERED: DEXAMETHASONE SODIUM PHOSPHATE 8 MG, ONDANSETRON INJECTION 8 MG in SODIUM CHLORIDE 100 ML IVPB ONE (10:00)
[2018-09-29] MEDS ORDERED: SODIUM CHLORIDE IV ONE (10:30)
[2018-09-29] MEDS ORDERED: GEMCITABINE HCL IV ONE (10:30)
[2018-09-29 11:23] LABS: BASO % 0.4 % (0-2.0); HEMATOCRIT 34.2 % (32.4-45.2); HEMOGLOBIN 11.2 GM/dL (10.7-15.3); LYMPH % 12.8 % (8-40); MCH 27.3 pg (25.7-33.7); MCHC 32.7 g/dl (32.0-36.0); MEAN CELL VOLUME 83.7 fl (80-96); MEAN PLT VOLUME 7.8 fl (7.5-11.1); MONO % 10.3 % (3.8-10.2); NEUT % 76.5 % (42.8-82.8); PLATELET COUNT 307 K/MM3 (134-434); RBC 4.09 M/mm3 (3.60-5.2); RDW 18.4 % (11.6-15.6); WHITE BLOOD COUNT 17.7 K/mm3 (4.0-10.0)
[2018-09-29 11:58] LABS: ALBUMIN 2.7 g/dl (3.4-5.0); ALK PHOS 92 U/L (45-117); ANION GAP 12 MMOL/L (8-16); BILIRUBIN,TOTAL 0.7 mg/dL (0.2-1); BLOOD UREA NITROGEN 15 mg/dL (7-18); CALCIUM 8.7 mg/dL (8.5-10.1); CHLORIDE 102 mmol/L (98-107); CO2 22 mmol/L (21-32); CREATININE 0.9 mg/dL (0.55-1.3); GLUCOSE,RANDOM 145 mg/dL (74-106); POTASSIUM 3.6 mmol/L (3.5-5.1); SGOT/AST 25 U/L (15-37); SGPT/ALT 25 U/L (13-61); SODIUM 136 mmol/L (136-145)
[2018-09-29 12:02] LABS: ALBUMIN 2.6 g/dl (3.4-5.0); BILIRUBIN,DIRECT 0.3 mg/dL (0.0-0.2); BILIRUBIN,TOTAL 0.6 mg/dL (0.2-1); MAGNESIUM 1.8 mg/dL (1.8-2.4)
[2018-09-29] MEDS ORDERED: SODIUM CHLORIDE 500 ML IV SCH (12:15)
[2018-09-29 12:22] LABS: ANISOCYTOSIS 0; HELMET CELLS 0; HOWELL-JOLLY BODIES 0; MACROCYTOSIS 0; OVALOCYTE 0; PLATELET ESTIMATE NORMAL; ROULEAU 0; SICKELED CELLS 0; TARGET CELLS 0; TEAR DROP CELLS 0; TOXIC GRANULATION 0
[2018-09-29 15:30] VITALS: TEMP 97.7
[2018-09-29 15:32] VITALS: BP 100/54; PULSE 85
== END 2018-09-29 15:39 | disposition home or self-care (01) ==
LOC: JONCCHEMO 07:18 → J7W 11:49 → JONCCHEMO 15:39
PROVIDERS: ATTEND Internal Medicine Hematology & Oncology
PROC: 3E03305 Introduction of Other Antineoplastic into Peripheral Vein, Percutaneous Approach (ICD-10-PCS; principal; 2018-09-29)
PROC: 3E033GC Introduction of Other Therapeutic Substance into Peripheral Vein, Percutaneous Approach (ICD-10-PCS; 2018-09-29)
PROC: 3E0337Z Introduction of Electrolytic and Water Balance Substance into Peripheral Vein, Percutaneous Approach (ICD-10-PCS; 2018-09-29)
DX: Z51.11 Encounter for antineoplastic chemotherapy (principal); C50.912 Malignant neoplasm of unspecified site of left female breast; C50.911 Malignant neoplasm of unspecified site of right female breast; Z17.1 Estrogen receptor negative status [ER-]; I10 Essential (primary) hypertension; K21.9 Gastro-esophageal reflux disease without esophagitis; Z90.12 Acquired absence of left breast and nipple; K44.9 Diaphragmatic hernia without obstruction or gangrene; E03.9 Hypothyroidism, unspecified; Z95.0 Presence of cardiac pacemaker
CPT/HCPCS: 36415; 80053; 80076; 83735; 85025; 96361; 96367; 96375; 96413; J2405